=== PATIENT | male | born 1995 | race Two or more races ===

== ENCOUNTER 2025-04-28 12:04 | Outpatient (CLI) | payer OTHER | END 2025-04-28 12:22 | disposition home or self-care (01) | LOC: MRI 12:04 | PROVIDERS: ATTEND General Practice | DX: G44.321 Chronic post-traumatic headache, intractable (principal); S06.2X5D Diffuse traumatic brain injury with loss of consciousness greater than 24 hours with return to pre-existing conscious levels, subsequent encounter | CPT/HCPCS: 70551 ==